=== PATIENT | female | born 1960 | race Caucasian/White ===

== ENCOUNTER 2025-01-20 14:31 | Outpatient (AMB) | payer OTHER, SELFPAY ==
[2025-01-20 14:34] VITALS: BMI 32.5
--- NOTE | 2025-01-20 14:34 | A.PHYSOV ---
Vital Signs 01/20/25 14:34 Height 5 ft 8 in Weight 214 lb BMI 32.5 Intake Visit Reasons: 3M FUV Intake Note: Patient is a 64 year old female in office for a 3 month medication management follow up visit. Preliminary School Psychologist Required: Yes Preliminary School Psychologist Language: Somali Preliminary School Psychologist Services: Preliminary School Psychologist Offered & Declined Information Interpreted: non-clinical & clinical Allergies No Known Allergies Allergy (Verified 01/20/25 14:34) HPI Comments Details: History of Present Illness The patient is a 64-year-old female presenting for a follow-up visit for management of chronic pain. She has a history of chronic pain in her hands and both knees, for which she is on a stable regimen of oxycodone 5 mg, taking up to 6 tablets a day. She supplements with glucosamine and turmeric and utilizes various natural topical remedies. Her current medication regimen allows her to maintain a better quality of life and continue working as a [employer], with her overall condition remaining the same. She reports new onset shoulder pain, which she has been treating with [id number] adhesive lidocaine patches, which provide some relief. The patient notes that her pain tends to worsen during the winter. Pain Description - Location: The patient experiences chronic pain in her hands and both knees, with new onset pain in her shoulders. - Exacerbating Factors: Pain worsens during the winter months. - Relieving Factors: Pain is managed with oxycodone, glucosamine, turmeric, and various natural topical remedies. - Relieving Factors for Shoulder Pain: The patient has found some relief from adhesive patches. Results [facility] Medical History (Updated 01/20/25 @ 15:03 by Ha Childress DO) Myofascial pain Osteoarthritis of knees, bilateral Degenerative joint disease of hand Chronic pain syndrome Social History Household Members: Spouse Alcohol intake: current Alcohol intake frequency: does not drink Patient Tobacco Use Status: Never used Tobacco Current occupational status: employed Current occupation: part time receptionist Review of Systems Narrative Review of Systems - Musculoskeletal: Reports chronic pain in hands and knees. - Musculoskeletal: Reports new onset shoulder pain, which is exacerbated by cold weather. - Constitutional: Denies weight loss. Denies any change in bowel bladder habits, denies any fever or chills, denies uncontrolled depression or suicidal ideation Physical Exam Exam Exam: Physical Exam Patient appears to be in no acute distress. She ambulates without antalgia. Examination of both shoulders reveals painful end point of abduction in both shoulders, negative drop-arm test. Negative shoulder apprehension test. Positive Hassan and Neer signs. Cervical range of motion was restricted in extension. Lumbar range of motion was restricted in extension. Dural tension signs were negative. Tenderness with palpation over both hands metacarpophalangeal and interphalangeal joints, no evidence of noticeable joint hypertrophy with the examination Vital Signs: BMI result Body Mass Index 32.5 Assessment & Plan Assessment & Plan (1) Chronic pain syndrome: Code(s): G89.4 - Chronic pain syndrome Category: Medical (2) Degenerative joint disease of hand: Code(s): M19.049 - Primary osteoarthritis, unspecified hand Category: Medical (3) Osteoarthritis of knees, bilateral: Code(s): M17.0 - Bilateral primary osteoarthritis of knee Category: Medical Qualifiers: Osteoarthritis type: primary Qualified Code(s): M17.0 - Bilateral primary osteoarthritis of knee (4) Myofascial pain: Code(s): M79.18 - Myalgia, other site Category: Medical Plan Pain Management - Analgesia: The patient is on a stable regimen of oxycodone 5 mg, up to 6 tablets per day. - Analgesia: A prescription for 5% lidocaine patches will be provided for shoulder and myofascial pain. - Analgesia: She also uses glucosamine, turmeric, and various natural topical remedies to supplement her pain management. - Activities of Daily Living: Her current treatment allows her to maintain a better quality of life and continue working as a [employer]. - Aberrant Drug-Related Behaviors: None noted; her condition is stable with her current management. Plan Patient was informed and verbally consented to the use of an ambient scribe for clinic note documentation during this visit. 1. Chronic Pain Syndrome The patient's chronic pain in her hands and knees is stable on her current regimen. She will continue her medication of oxycodone 5 mg, up to 6 tablets daily. She will also continue her use of supplements, including glucosamine and turmeric, and various natural topical remedies. The next prescription refill will be due around February 12. A follow-up is scheduled in three months. 2. Arthralgia Of Shoulder The patient reports new onset shoulder pain. A prescription for 5% lidocaine patches will be sent to her pharmacy. She was instructed to apply one patch for 12 hours, then remove it for 12 hours, and to use them regularly for best effect. Discussion Notes I reviewed the patient's stable chronic pain in the hands and knees, noting that her current regimen of oxycodone, supplements, and topicals is effective. We addressed her new onset shoulder pain, and I will prescribe 5% lidocaine patches. I instructed her on the proper use of the patches for maximum efficacy: 12 hours on, 12 hours off, used regularly. We also clarified the process for prescription refills, confirming her next refill is due in early February, and she will follow up in three months. Patient Instructions - Continue taking your oxycodone 5 mg as prescribed, up to 6 tablets a day for your pain. - You may continue to use your supplements like glucosamine and turmeric, as well as topical creams. - For your new shoulder pain, I have prescribed Lidocaine 5% patches. - Apply one patch to the painful area for 12 hours, and then take it off for 12 hours before applying a new one. Use these patches regularly for the best results. - Your next prescription refill will be due around February 12. Please call the office to request it. - We will see you back in the office in about three months for your next follow-up. Medications: New oxycodone-acetaminophen 5-325 mg Partial fill upon request 1 tab PO Q4H PRN 168 tabs 0RF pain 28 days G89.4 - Chronic pain syndrome, M17.0 - Bilateral primary osteoarthritis of knee, M19.049 - Primary osteoarthritis, unspecified hand, M79.18 - Myalgia, other site lidocaine 5% Leave on most painful area for up to 12 hrs. Use every day for better results. 3 patches topical DAILY 90 ea 0RF Myofascial pain 30 days G89.4 - Chronic pain syndrome, M79.18 - Myalgia, other site Coding Level of Care Code Est Pt Level 4 (58336) Add On Problem Visit Only Diagnoses Chronic pain syndrome G89.4 Degenerative joint disease of hand M19.049 Primary osteoarthritis of both knees M17.0 Osteoarthritis type: primary Myofascial pain M79.18
== END 2025-01-20 15:03 | disposition home or self-care (01) ==
LOC: HO.HPHYS 14:32
PROVIDERS: Visit Provider Physical Medicine & Rehabilitation
DX: G89.4 Chronic pain syndrome (principal); M19.049 Primary osteoarthritis, unspecified hand; M17.0 Bilateral primary osteoarthritis of knee; M79.18 Myalgia, other site
CPT/HCPCS: 99214; G2211